=== PATIENT | male | born 1950 | race Caucasian/White ===

== ENCOUNTER 2016-10-03 11:49 | Day surgery (SDC) | payer OTHER ==
[2016-10-03] MEDS ORDERED: NS 1,000 ML IV ONE (11:52)
[2016-10-03] MEDS ORDERED: DIAZEPAM 5 MG TAB PO ONE (11:52)
[2016-10-03] MEDS ORDERED: FAMOTIDINE 20 MG TAB PO ONE (11:52)
[2016-10-03] MEDS ORDERED: ASPIRIN EC 325 MG TAB PO ONE ×2 (11:52→12:29)
[2016-10-03] MEDS ORDERED: diphenhydrAMINE 25 MG CAP PO ONE ×2 (11:52→12:29)
--- NOTE | 2016-10-03 12:20 | CPEKG ---
Heart Rate: 62 RR Interval: 968 P-R Interval: 136 QRSD Interval: 86 QT Interval: 404 QTC Interval: 411 P [place]: 47 QRS [place]: -46 T Wave [place]: 50 EKG Severity - OTHERWISE NORMAL ECG - EKG Impression: SINUS RHYTHM Electronically Signed By: Isaías Alvarez 03-Oct-2016 15:42:31
[2016-10-03] MEDS ORDERED: CLOPIDOGREL BISULFATE 75 MG TAB ONE (12:29)
[2016-10-03] MEDS ORDERED: FAMOTIDINE 20 MG TAB ONE (12:29)
[2016-10-03] MEDS ORDERED: DIAZEPAM 5 MG TAB ONE (12:29)
[2016-10-03 12:41] LABS: % IMMATURE GRANULYOCYTES 1.4 % (0.0-1.1); ABSOLUTE IMMATURE GRANULOCYTES 0.08 10^3/uL (0.00-0.10); ADD DIFF? NO; ADD MORPH? NO; ADD SCAN? NO; ATYPICAL LYMPHOCYTE FLAG 10 (0-99); FRAGMENT RBC FLAG 0 (0-99); HEMATOCRIT 44.6 % (40.0-51.0); LEFT SHIFT FLG 10 (0-99); LIPEMIA HEMOLYSIS FLAG 80 (0-99); MEAN CELL HEMOGLOBIN 31.9 pg (27.9-34.1); MEAN CELL HEMOGLOBIN CONCENTR. 33.6 g/dL (32.4-36.7); MEAN CELL VOLUME 94.9 fL (81.5-99.8); MEAN PLATELET VOLUME 11.2 fL (8.7-11.7); PLATELET CLUMPS FLAG 0 (0-99); PLATELET COUNT 183 10^3/uL (150-400); RED CELL DISTRIBUTION WIDTH 13.2 % (11.5-15.2)
[2016-10-03 12:52] LABS: INR 1.02 (0.83-1.16); PROTIME(PATIENT) 13.3 SEC (12.0-15.0)
[2016-10-03 12:53] LABS: ANION GAP 12 mEq/L (8-16); CALCIUM 9.9 mg/dL (8.5-10.4); CARBON DIOXIDE 22 mEq/l (22-31); CHLORIDE 106 mEq/L (97-110); CHOLESTEROL 154 mg/dL (140-220); CHOLESTEROL/HDL RATIO 3.67 RATIO (1.00-4.97); GLOMERULAR FILTRATION RATE > 60; GLUCOSE 192 mg/dL (70-100); HIGH DENSITY LIPOPROTEIN 42 mg/dL (40-65); LDL/HDL RATIO 1.98 RATIO (1.00-3.64); LOW DENSITY LIPOPROTEIN 83 mg/dL (80-100); MAGNESIUM 1.6 mg/dL (1.6-2.3); NON-HIGH DENSITY LIPOPROTEIN 112 mg/dL (90-129); POTASSIUM 4.6 mEq/L (3.5-5.2); SODIUM 140 mEq/L (134-144); TRIGLYCERIDE 145 mg/dL (40-150); VERY LOW DENSITY LIPOPROTEINS 29 mg/dL (8-25)
[2016-10-03] MEDS ORDERED: fentaNYL 100 MCG/2 ML INJ ONE ×2 (14:43→15:16)
[2016-10-03] MEDS ORDERED: LIDOCAINE 1% 300 MG/30 ML SDV ONE ×2 (14:43→15:16)
[2016-10-03] MEDS ORDERED: MIDAZOLAM 2 MG/2 ML VIAL ONE ×2 (14:44→15:17)
[2016-10-03] MEDS ORDERED: VERAPAMIL 5 MG/2 ML VIAL ONE (14:44)
[2016-10-03] MEDS ORDERED: HEPARIN 10,000 UNIT/10 ML MDV ONE (14:44)
[2016-10-03] MEDS ORDERED: IOPAMIDOL (ISOVUE-370) 150 ML BTL IV ONE ×3 (14:44→16:26)
[2016-10-03] MEDS ORDERED: NITROGLYCERIN 1,500 MCG/15 ML VIAL MISC ONE (16:30)
--- NOTE | 2016-10-03 16:57 | PDDXCAT ---
Diagnostic Cath Note - . Date: 10/03/16 Track Repair Laborer: Luigi Intervention: none *Procedure 1. selective coronary angiography 2. left heart catheterization Indication: High risk MPI, shortness of breath, CCS IV angina at rest. Access: right radial *Materials Left Heart Cath size: 5F Left Heart Cath materials: JR4, JL3.5, pigtail *Findings- selective coronary angiography LM: The L is ~ mm in size and it bifurcates into the LAD and circumflex system. LAD: The LAD is ~4 mm in size. Luminal irregularities with associated calcification are present consistent with at least moderate coronary disease is present. A 40% eccentric lesion is present in the proximal LAD A 50% eccentric mid LAD lesion is present with EDNA III flow throughout. Ramus Intermedius: This is a high obtuse marginal vessel, which is a functional Ramus vessel. There is a 30% blockage in the Ramus. There is 80% obstruction in the alpha branch of this blood vessel which is not amenable of stenting. LCX: The LCX is ~2 mm in size and is codominant. EDNA III flow is present throughout. RCA: The RCA is ~4 mm in size and there is a 30% proximal RCA obstruction. Co- dominant with EDNA III flow throughout. *Findings- Left Heart Catheterization LVEDP: 16 mmHg AO: 117/65/85 mmHg LVEF: 65% LV% with mitral regurgitation in the LVG, which may be related to *Summary Complications: Estimated Blood Loss: <50 ml Closure Method: T Assessment/Conclusion: 1. This patient has moderate but not obstructive coronary disease. There is no evidence of myocardial infarction involving the inferior wall. He should be treated with statin therapy in order to achieve a non-HDL cholesterol of <100. His fasting blood sugar was also elevated on this morning's labs and he may benefit from more aggressive management of his blood sugar. I did explain to the patient that he is at risk of myocardial infarction based on the results of the catheterization today and after an appropriate period of healing it may be reasonable for him to begin a life style modification program including routine moderate exercise and introduced restriction of simple sugars and animal based fats in his diet.
== END 2016-10-03 19:08 | disposition home or self-care (01) ==
LOC: FCATH 11:49
PROVIDERS: ATTEND Internal Medicine Cardiovascular Disease
DX: I25.119 Atherosclerotic heart disease of native coronary artery with unspecified angina pectoris (principal); R06.02 Shortness of breath; R94.39 Abnormal result of other cardiovascular function study; I10 Essential (primary) hypertension; E78.5 Hyperlipidemia, unspecified; E11.9 Type 2 diabetes mellitus without complications; I77.9 Disorder of arteries and arterioles, unspecified; G47.30 Sleep apnea, unspecified; M10.9 Gout, unspecified; B35.6 Tinea cruris; E66.9 Obesity, unspecified; Z68.36 Body mass index [BMI] 36.0-36.9, adult; Z79.02 Long term (current) use of antithrombotics/antiplatelets; Z87.442 Personal history of urinary calculi; Z86.73 Personal history of transient ischemic attack (TIA), and cerebral infarction without residual deficits
CPT/HCPCS: J1644; J2250; J3010; Q9967

== ENCOUNTER 2016-11-08 19:58 | Emergency (ER) | payer OTHER ==
--- NOTE | 2016-11-08 20:00 | EDPHY ---
H & P HPI/ROS: HPI CHIEF COMPLAINT: Right knee laceration HISTORY OF PRESENT ILLNESS: This patient very pleasant 66-year-old male significant past medical history for hypertension, diabetes non-insulin dependent, TIA on Plavix, he presents emergency room after he sustained a laceration to the right anterior knee. He states that tripped and fell on the edge of a level this was metal. He sustained a 5 cm horizontal anterior knee laceration. He was seen at Urgent Care prior to arrival however they were unable to repair the laceration and had significant bleeding so they sent him here to the emergency room. Does tell me his tetanus shot is up-to-date. He has full range of motion of his knee. No significant tenderness. Upon arrival here in emergency room he has venous oozing from the laceration site. Past Medical History: Hypertension, hyperlipidemia, [id number] diabetes Past Surgical History: No recent surgical history Social History: Denies daily use of drugs alcohol tobacco products Family History: Noncontributory ROS REVIEW OF SYSTEMS: A comprehensive 10 point review of systems is otherwise negative aside from elements mentioned in the history of present illness. Exam Constitutional triage nursing summary reviewed, vital signs reviewed, awake/ alert. Eyes normal conjunctivae and sclera, EOMI, PERRLA. HENT normal inspection, atraumatic, moist mucus membranes, no epistaxis, neck supple/ no meningismus, no raccoon eyes. Respiratory clear to auscultation bilaterally, normal breath sounds, no respiratory distress, no wheezing. Cardiovascular rate normal, regular rhythm, no murmur, no edema, distal pulses normal. Gastrointestinal soft, non-tender, no rebound, no guarding, normal bowel sounds, no distension, no pulsatile mass. Genitourinary no CVA tenderness. Musculoskeletal no midline vertebral tenderness, full range of motion, no calf swelling, no tenderness of extremities, no meningismus, good pulses, neurovascularly intact. Skin right knee: Horizontally oriented 5 cm laceration venous oozing, no deep structures involved, no tendon injury, there was visible a very small arterial bleeder that was pumping. Neurologic awake, alert and oriented x 3, AAOx3, moves all 4 extremities equally, motor intact, sensory intact, CN II-XII intact, normal cerebellar, normal vision, normal speech. Psychiatric normal mood/affect. Heme/Lymph/Immune no lymphadenopathy. Differential Diagnosis: Includes but is not limited to in a particular order right knee laceration, soft tissue injury, bony bruising. Medical Decision Making: Plan for this patient is will be copiously irrigated out, his tetanus shot is already up-to-date. Notes sterile closure of this. Will be explored for foreign bodies and deep structures. Patient be empirically placed on antibiotics as he is a diabetic. Re-evaluation: Laceration Repair Procedure: Verbal Consent was obtained, Under sterile conditions, The patient had lidocaine with epinephrine used approximately 7ccs to local anesthetize the right anterior knee 5 cm horizontal Laceration. The wound was copiously irrigated with sterile fluid, the wound was explored for foreign bodies there were none visualized, the wound was explored with a sterile glove to the base. There are no deep structures involved, very small arterial Pumper present.. 6.0 interrupted 4.O PROLENE Sutures were placed in this patient's laceration. He had good close approximation of the wound edges. He Tolerated this well. This patient be given crutches, knee immobilizer. Pressure dressing will be placed. 1st dose of antibiotics Keflex here given in emergency room. Keflex take-home pack and Keflex prescription. He understands have sutures removed in 10-12 days. Watch closely for infection. This includes redness, swelling, drainage, pus. Ambulate as much as possible. Watch out for calf swelling for DVT. Stay immobilizer for the next week. He understands. I went over this extensively with him and his . Source: Patient - Social History Smoking Status: Never smoked Constitutional: Initial Vital Signs Temperature (C) 36.8 C 11/08/16 20:09 Heart Rate 59 L 11/08/16 20:09 Respiratory Rate 20 11/08/16 20:09 Blood Pressure 165/98 H 11/08/16 20:09 O2 Sat (%) 93 11/08/16 20:09 O2 Delivery Mode Room Air Allergies/Adverse Reactions: aspartame Allergy (Verified 11/08/16 20:15) Home Medications: Medication Instructions Recorded Levothyroxine [Synthroid 50 mcg 50 mcg PO DAILY06 04/22/12 (RX)] Omeprazole Magnesium [Prilosec Otc] 20 mg PO DAILY PRN 04/22/12 Valproic Acid [Depakene 250MG (RX)] 500 mg PO BID 04/22/12 metFORMIN HCL [Glucophage 500 mg 500 mg PO DAILY@12 04/22/12 (RX)] Albuterol [Proventil Inhaler HFA 1 - 2 puffs IH DAILY PRN 10/03/16 (*)] Cholecalciferol Vit D3 [Vitamin D3 2,000 units PO DAILY 10/03/16 2000 units tab (OTC)] Clopidogrel Bisulfate [Plavix (*)] 75 mg PO DAILY 10/03/16 Cyanocobalamin [Vitamin B12 (*)] 1,000 mcg PO DAILY 10/03/16 Lisinopril [Zestril 10 mg (*)] 10 mg PO DAILY 10/03/16 Meclizine HCl [Meclizine HCl 25 mg 25 mg PO BID PRN 10/03/16 (RX,OTC)] Multivitamins [Multivitamin (*)] 1 each PO DAILY 10/03/16 Sumatriptan Succinate [Imitrex] 100 mg PO DAILY PRN 10/03/16 glipiZIDE [Glipizide] 10 mg PO BID 10/03/16 metFORMIN HCL [Glucophage 1000 mg] 1,000 mg PO BIDMEAL 10/03/16 Cephalexin [Keflex] 500 mg PO Q6H #28 cap 11/08/16 Departure - Departure Disposition: Home, Routine, Self-Care Clinical Impression: Laceration Condition: Good Instructions: Laceration (ED), Care For Your Stitches (ED), Knee Immobilizer ( ED), Crutch Instructions (ED) Additional Instructions: 1. Keep your wound clean, dry and protected. You may get warm soapy water over it when you are in the shower but nothing directly. 2. Please watch out for signs of infection this includes redness, drainage, pus , swelling, fever or any questions or concerns about your wound. 3. Take antibiotics as prescribed. 4. Your sutures need to be removed in 12 days. Referrals: Mitali Bennett MD [Primary Care Provider] - As per Instructions Prescriptions: Cephalexin [Keflex] 500 mg PO Q6H #28 cap
[2016-11-08] MEDS ORDERED: CEPHALEXIN 500MG PREPACK#4 BTL TAKEHOME ONE (20:18)
[2016-11-08] MEDS ORDERED: CEPHALEXIN 500 MG CAP PO ONE (20:18)
[2016-11-08 20:27] VITALS: BP 176/90; PULSE 61; RESP 16; TEMP 98.4; O2SAT 92
== END 2016-11-08 20:39 | disposition home or self-care (01) ==
LOC: CED 19:58
PROC: 0HQKXZZ Repair Right Lower Leg Skin, External Approach (ICD-10-PCS; principal; 2016-11-08)
DX: S81.011A Laceration without foreign body, right knee, initial encounter (principal); I10 Essential (primary) hypertension; E11.9 Type 2 diabetes mellitus without complications; Z79.84 Long term (current) use of oral hypoglycemic drugs; W01.0XXA Fall on same level from slipping, tripping and stumbling without subsequent striking against object, initial encounter
CPT/HCPCS: L1830

== ENCOUNTER → 2017-04-26 | Outpatient (CLI) | payer OTHER, MEDICARE | LOC: FIMAGING 11:02 | PROVIDERS: ATTEND Psychiatry & Neurology Neurology | DX: G43.109 Migraine with aura, not intractable, without status migrainosus (principal); R26.9 Unspecified abnormalities of gait and mobility ==

== ENCOUNTER → 2017-05-29 | Outpatient (CLI) | payer OTHER, MEDICARE | LOC: SBRMNEURO 21:00 | PROVIDERS: ATTEND Physician Assistant Medical | DX: G47.33 Obstructive sleep apnea (adult) (pediatric) (principal) ==

== ENCOUNTER → 2018-04-26 | Outpatient (CLI) | payer OTHER, MEDICARE | LOC: CIMAGING 16:55 | PROVIDERS: ATTEND Psychiatry & Neurology Neurology | DX: R51 Headache (principal) | CPT/HCPCS: 70450-PO ==

== ENCOUNTER → 2018-09-12 | Outpatient (CLI) | payer OTHER, MEDICARE | LOC: FIMAGING 10:47 → EDSTATUS 10:48 | PROVIDERS: ATTEND Family Medicine | DX: M25.512 Pain in left shoulder (principal); M24.812 Other specific joint derangements of left shoulder, not elsewhere classified ==